=== PATIENT | female | born 1945 | race Caucasian/White ===

== ENCOUNTER 2016-10-21 02:58 | Emergency (ER) | payer OTHER ==
[~2016-10-21] VITALS: Ht 157.5 cm; Wt 99.8 kg
[~2016-10-21 02:58] MED LIST: ACET-1156 PO; ALB5IS NEB; ALPR0.25 PO; ASPI81CH43 PO; CLOP75TA41 PO; FLUO-125 PO; FURO20TA3 PO; GABA-339 PO; HYDR-1421 PO; IPR002IS NEB; Isosorbide Mononitrate PO; LEVEMIR SC; MAGN400T7 PO; METF-314 PO; METO-169 PO; NITR0.2D12 TD; OMEP20TA PO; POTA20IN2 PO; PRED-559 PO; SIMV-8 PO; TELM80TA PO
[2016-10-21 03:28] LABS: Basophils # (auto) 0 uL; Basophils % (auto) 0.3 % (0.0-2.0); Eosinophils # (auto) 0.5 uL; Eosinophils % (auto) 4.3 % (0.0-7.0); Hematocrit 32.4 % (36.0-46.0); Hemoglobin 10.7 g/dL (12.2-16.2); Lymphocytes # (auto) 3.7 uL; Lymphocytes % (auto) 34.6 % (10.0-50.0); Mean Corpuscular Hemoglobin 27.7 pg (28.0-32.0); Mean Corpuscular Hgb Conc. 33.1 g/dL (32.0-36.0); Mean Corpuscular Volume 83.6 fL (80.0-100.0); Monocytes # (auto) 0.7 uL; Monocytes % (auto) 6.1 % (0.0-12.0); Neutrophils # (auto) 5.9 uL; Neutrophils % (auto) 54.7 % (37.0-80.0); Platelet Count (auto) 369 10^3/uL (140-450); Red Cell Distribution Width 14.5 % (11.6-16.0); White Blood Cell 10.7 10^3/uL (4.4-10.8)
[2016-10-21] MEDS ORDERED: MORPHINE SULFATE 4 MG/ML SYRG IV ONE (03:45)
[2016-10-21] MEDS ORDERED: ONDANSETRON HCL 4 MG/2 ML VIAL IV ONE (03:45)
[2016-10-21 03:47] LABS: Albumin 3.7 g/dL (3.4-5.0); BUN/Creatinine Ratio 24.6; Calcium 8.3 mg/dL (8.5-10.1); Potassium 4.3 mmol/L (3.5-5.1)
[2016-10-21 03:50] LABS: Bilirubin, Total 0.3 mg/dL (0.2-1.0); Total Protein 7.1 g/dL (6.4-8.2)
[2016-10-21 03:52] LABS: INR 0.94 (0.9-1.15); Partial Thromboplastin Time 26.4 sec (22.64-33.71); Prothrombin Time 10.2 sec (9.37-12.3)
[2016-10-21 06:31] VITALS: BP 107/67
== END 2016-10-21 06:16 | disposition home or self-care (01) ==
LOC: ER 02:58
DX: S66.912A Strain of unspecified muscle, fascia and tendon at wrist and hand level, left hand, initial encounter (principal); S16.1XXA Strain of muscle, fascia and tendon at neck level, initial encounter; S39.012A Strain of muscle, fascia and tendon of lower back, initial encounter; S09.90XA Unspecified injury of head, initial encounter; I11.0 Hypertensive heart disease with heart failure; I50.9 Heart failure, unspecified; J44.9 Chronic obstructive pulmonary disease, unspecified; E11.9 Type 2 diabetes mellitus without complications; E78.5 Hyperlipidemia, unspecified; M19.90 Unspecified osteoarthritis, unspecified site; Z95.1 Presence of aortocoronary bypass graft; Z88.1 Allergy status to other antibiotic agents; Z87.891 Personal history of nicotine dependence; Z90.89 Acquired absence of other organs; W10.9XXA Fall (on) (from) unspecified stairs and steps, initial encounter; Y93.89 Activity, other specified; Y99.8 Other external cause status; Y92.89 Other specified places as the place of occurrence of the external cause
CPT/HCPCS: 36415; 70450; 72125; 72128; 72131; 73100; 80053; 85025; 85610; 85730; 96374; 96375; 99285; J2270; J2405

== ENCOUNTER 2017-11-11 00:51 | Inpatient (IN) | payer OTHER ==
[~2017-11-11] VITALS: Ht 160 cm; Wt 104.9 kg
[~2017-11-11 00:51] MED LIST changes: +DOXY1CAP82 PO; -METF-314 PO; +METF-371 PO
[2017-11-11 02:11] LABS: Basophils # (auto) 0.1 uL; Eosinophils # (auto) 0.4 uL; Eosinophils % (auto) 4.5 % (0.0-7.0); Lymphocytes # (auto) 2.1 uL; Lymphocytes % (auto) 25.6 % (10.0-50.0); Mean Corpuscular Hemoglobin 28.3 pg (28.0-32.0); Mean Corpuscular Hgb Conc. 33.3 g/dL (32.0-36.0); Mean Corpuscular Volume 84.8 fL (80.0-100.0); Monocytes # (auto) 0.3 uL; Monocytes % (auto) 4.2 % (0.0-12.0); Neutrophils # (auto) 5.4 uL; Neutrophils % (auto) 64.7 % (37.0-80.0); Nucleated Red Blood Cells % 0.2 %; Platelet Count (auto) 255 10^3/uL (140-450); Red Blood Cells 3.54 10^6/uL (4.0-5.20); Red Cell Distribution Width 14.9 % (11.8-14.3); White Blood Cell 8.4 10^3/uL (4.4-10.8)
[2017-11-11 02:21] LABS: INR 0.91 (0.9-1.15); Prothrombin Time 9.8 sec (9.27-12.13)
[2017-11-11 02:41] LABS: BUN/Creatinine Ratio 13.2; Calcium 7.8 mg/dL (8.5-10.1); Magnesium 1.9 mg/dL (1.6-2.6); Potassium 3.6 mmol/L (3.5-5.1)
[2017-11-11 02:46] LABS: Bilirubin, Total 0.3 mg/dL (0.2-1.0); Total Protein 6.5 g/dL (6.4-8.2)
[2017-11-11 02:54] LABS: Partial Thromboplastin Time 19.6 sec (23.78-33.04)
[2017-11-11] MEDS ORDERED: ONDANSETRON HCL 4 MG/2 ML VIAL IV ONE (04:15)
[2017-11-11] MEDS ORDERED: NALBUPHINE HCL 10 MG/1ml INJECTION IV ONE (04:15)
[2017-11-11] MEDS ORDERED: HYDROmorphone HCL 2 MG/ML VL IV PRN (08:15)
[2017-11-11] MEDS ORDERED: LACTULOSE 20Gm/30ML SOLN PO PRN (08:15)
[2017-11-11] MEDS ORDERED: DEXTROSE (50%) 50ML SYRG IV PRN (08:15)
[2017-11-11] MEDS ORDERED: ACETAMINOPHEN 500 MG TAB PO PRN (08:15)
[2017-11-11] MEDS ORDERED: NITROGLYCERIN 0.4 MG SL TAB SL PRN (08:15)
[2017-11-11] MEDS ORDERED: LORazepam 0.5 MG TAB PO PRN (08:15)
[2017-11-11] MEDS ORDERED: PROMETHAZINE HCL 25 MG/ML 1ML IV PRN (08:15)
[2017-11-11] MEDS ORDERED: TEMAZEPAM 15 MG CAP PO PRN (08:15)
[2017-11-11] MEDS ORDERED: IOHEXOL 350 MG/ML 100ML IJ ONE (08:41)
[2017-11-11] MEDS: cefTRIAXone 1GM/10ml IVPUSH 10 ML IV SCH (09:09)
[2017-11-11] MEDS: AZITHROMYCIN 500MG/ 250ML 250 ML IV SCH (09:39)
[2017-11-11] MEDS: ASPirin 81 mg TAB PO SCH (09:39)
[2017-11-11] MEDS: NITROGLYCERIN 0.2MG/HR TOPICAL PATCH TD SCH (09:39)
[2017-11-11 09:49] VITALS: BP 122/67
[2017-11-11] MEDS ORDERED: ENOXAPARIN SOD 40 MG/0.4 ML SYRINGE SC SCH ×2 (10:00)
[2017-11-11] MEDS ORDERED: ENALAPRIL MALEATE 2.5 MG TAB PO SCH (10:00)
[2017-11-11] MEDS ORDERED: POTASSIUM CHL 20 Meq TABLET PO SCH (10:00)
[2017-11-11] MEDS ORDERED: CARVEDILOL 3.125 MG TAB PO SCH (10:00)
[2017-11-11] MEDS ORDERED: FUROSEMIDE 40 MG/4 ML VIAL IV SCH (10:00)
[2017-11-11 10:03] LABS: Urine Bacteria NONE SEEN /hpf (None Seen); Urine Blood Negative /uL (Negative); Urine Budding Yeast MANY /hpf (None Seen); Urine Specific Gravity 1.021 (1.001-1.035); Urine WBC 248 /hpf (0 - 5)
[2017-11-11 10:13] LABS: Amphetamine Screen, Urine NEGATIVE (NEGATIVE); Barbiturate Scree,Urine NEGATIVE (NEGATIVE); Benzodiazephine Screen, Urine NEGATIVE (NEGATIVE); Cannabinoid Screen, Urine NEGATIVE (NEGATIVE); Cocaine Screen, Urine NEGATIVE (NEGATIVE); Opiate Scree,Urine POSITIVE (NEGATIVE); Phencyclidine Screen, Urine NEGATIVE (NEGATIVE)
[2017-11-11] MEDS: HYDROcodone-ACET 5/325MG TAB PO PRN ×2 (10:47→17:11)
[2017-11-11] MEDS: IPRATROPIUM BROM 0.5 MG/2.5ML INH SOL NEB SCH ×2 (11:02→18:51)
[2017-11-11] MEDS: ALBUTEROL SULF 2.5 MG/0.5ML(0.5%) NEB SOLN NEB SCH ×2 (11:02→18:51)
[2017-11-11] MEDS ORDERED: ENOXAPARIN SOD 60 MG/0.6 ML SYRINGE SC ONE (11:30)
[2017-11-11] MEDS: METOPROLOL SUCCINATE XL 50 MG TAB PO SCH (12:02)
[2017-11-11] MEDS: LOSARTAN POTASSIUM 50 MG TAB PO SCH (12:06)
[2017-11-11] MEDS: PANTOPRAZOLE 40 MG TAB PO SCH (12:07)
[2017-11-11] MEDS: CLOPIDOGREL BISULFATE 75 MG TAB PO SCH (12:07)
[2017-11-11] MEDS: MAGNESIUM OXIDE 400 MG TAB PO SCH (12:07)
[2017-11-11] MEDS: ACCU-CHEK COMFORT CURVE STRIP VI SCH ×3 (12:07→22:05)
[2017-11-11] MEDS: ALPRAZolam 0.25 MG TAB PO SCH ×2 (12:07→22:06)
[2017-11-11] MEDS: FLUoxetine HCL 20 MG CAP PO SCH (12:07)
[2017-11-11] MEDS: GABAPENTIN 300 MG CAP PO SCH ×2 (12:07→22:06)
[2017-11-11] MEDS: INSULIN LANTUS (GLARGINE) 1 /0.01ml (100units/ml) SC SCH (12:08)
[2017-11-11] MEDS: InsuLIN REG 1unit/0.01ml Soln (100units/ml) SC SCH ×3 (12:08→22:27)
[2017-11-11] MEDS ORDERED: SODIUM CHLOR 0.9% PF (SALINE LOCK) 10ML VIAL/SYR IV SCH (14:00)
[2017-11-11] MEDS: SODIUM CHLOR 0.9% PF (SALINE LOCK) 10ML VIAL/SYR IV SCH ×2 (14:14→22:05)
[2017-11-11] MEDS: ALBUTEROL SULF 2.5 MG/0.5ML(0.5%) NEB SOLN NEB PRN ×2 (14:47→22:23)
[2017-11-11] MEDS: FUROSEMIDE 40 MG/4 ML VIAL IV SCH (17:35)
[2017-11-11 18:00] VITALS: BP 103/54
[2017-11-11 22:00] VITALS: BP 116/61
[2017-11-11] MEDS ORDERED: PATIENTS OWN MEDICATION (Gabapentin 600 MG) PO SCH (22:00)
[2017-11-11] MEDS ORDERED: ISOSORBIDE MONONITRATE 30 MG PO SCH (22:00)
[2017-11-11] MEDS: ENOXAPARIN SOD 100 MG/1 ML SYRINGE SC SCH (22:05)
[2017-11-11] MEDS: POTASSIUM CHL 20 Meq TABLET PO SCH (22:05)
[2017-11-11] MEDS: ATORVASTATIN 20 MG TAB PO SCH (22:06)
[2017-11-12] MEDS: IPRATROPIUM BROM 0.5 MG/2.5ML INH SOL NEB SCH ×4 (00:57→18:10)
[2017-11-12] MEDS: ALBUTEROL SULF 2.5 MG/0.5ML(0.5%) NEB SOLN NEB SCH ×4 (00:57→18:10)
[2017-11-12] MEDS: HYDROcodone-ACET 5/325MG TAB PO PRN ×3 (03:42→18:05)
[2017-11-12 06:30] VITALS: BP 107/43
[2017-11-12] MEDS: FUROSEMIDE 40 MG/4 ML VIAL IV SCH ×2 (06:41→17:26)
[2017-11-12] MEDS: SODIUM CHLOR 0.9% PF (SALINE LOCK) 10ML VIAL/SYR IV SCH ×3 (06:41→21:43)
[2017-11-12] MEDS: INSULIN LANTUS (GLARGINE) 1 /0.01ml (100units/ml) SC SCH (06:42)
[2017-11-12] MEDS: InsuLIN REG 1unit/0.01ml Soln (100units/ml) SC SCH ×4 (06:42→22:04)
[2017-11-12] MEDS: ACCU-CHEK COMFORT CURVE STRIP VI SCH ×4 (06:42→21:42)
[2017-11-12] MEDS ORDERED: INSULIN DETEMIR 16 UNIT SC SCH (07:00)
[2017-11-12 08:06] LABS: Basophils # (auto) 0 uL; Basophils % (auto) 0.6 % (0.0-2.0); Eosinophils # (auto) 0.3 uL; Eosinophils % (auto) 3.9 % (0.0-7.0); Hematocrit 30.7 % (36.0-46.0); Hemoglobin 10.2 g/dL (12.2-16.2); Lymphocytes % (auto) 26.9 % (10.0-50.0); Mean Corpuscular Hgb Conc. 33.1 g/dL (32.0-36.0); Mean Corpuscular Volume 84.6 fL (80.0-100.0); Monocytes # (auto) 0.3 uL; Monocytes % (auto) 4.1 % (0.0-12.0); Neutrophils # (auto) 4.9 uL; Neutrophils % (auto) 64.5 % (37.0-80.0); Nucleated Red Blood Cells % 0.1 %; Platelet Count (auto) 285 10^3/uL (140-450); Red Blood Cells 3.63 10^6/uL (4.0-5.20); Red Cell Distribution Width 15.1 % (11.8-14.3); White Blood Cell 7.6 10^3/uL (4.4-10.8)
[2017-11-12 08:44] LABS: Albumin 3.2 g/dL (3.4-5.0); BUN/Creatinine Ratio 15.1; Bilirubin, Total 0.3 mg/dL (0.2-1.0); Calcium 8.6 mg/dL (8.5-10.1); Potassium 4.1 mmol/L (3.5-5.1); Total Protein 6.8 g/dL (6.4-8.2)
[2017-11-12 09:00] VITALS: BP 126/66
[2017-11-12] MEDS ORDERED: IOHEXOL 350 MG/ML 100ML IJ ONE (09:30)
[2017-11-12] MEDS: cefTRIAXone 1GM/10ml IVPUSH 10 ML IV SCH (09:44)
[2017-11-12] MEDS ORDERED: TELMISARTAN 80 MG PO SCH (10:00)
[2017-11-12] MEDS ORDERED: PATIENTS OWN MEDICATION (Omeprazole (Gnp Omeprazole) 40 MG) PO SCH (10:00)
[2017-11-12] MEDS: AZITHROMYCIN 500MG/ 250ML 250 ML IV SCH (11:27)
[2017-11-12] MEDS: ASPirin 81 mg TAB PO SCH (11:27)
[2017-11-12] MEDS: MAGNESIUM OXIDE 400 MG TAB PO SCH (11:28)
[2017-11-12] MEDS: POTASSIUM CHL 20 Meq TABLET PO SCH ×2 (11:28→21:43)
[2017-11-12] MEDS: GABAPENTIN 300 MG CAP PO SCH ×2 (11:28→21:41)
[2017-11-12] MEDS: LOSARTAN POTASSIUM 50 MG TAB PO SCH (11:28)
[2017-11-12] MEDS: CLOPIDOGREL BISULFATE 75 MG TAB PO SCH (11:28)
[2017-11-12] MEDS: FLUoxetine HCL 20 MG CAP PO SCH (11:29)
[2017-11-12] MEDS: METOPROLOL SUCCINATE XL 50 MG TAB PO SCH (11:29)
[2017-11-12] MEDS: PANTOPRAZOLE 40 MG TAB PO SCH (11:29)
[2017-11-12] MEDS: ALPRAZolam 0.25 MG TAB PO SCH ×2 (11:29→21:41)
[2017-11-12] MEDS: NITROGLYCERIN 0.2MG/HR TOPICAL PATCH TD SCH (11:30)
[2017-11-12] MEDS: ENOXAPARIN SOD 100 MG/1 ML SYRINGE SC SCH (11:30)
[2017-11-12 13:00] VITALS: BP 88/47
[2017-11-12] MEDS: methylPREDNISolone SOD SUCC 40 MG/ML VL IV SCH ×2 (13:49→21:41)
[2017-11-12 17:00] VITALS: BP_SYST 107; BP_SYST 145; BP_DIAS 57; BP_DIAS 79
[2017-11-12] MEDS: ACETYLCYSTEINE 10 %(100MG/ML) SOL 4ML NEB SCH (18:11)
[2017-11-12] MEDS: ATORVASTATIN 20 MG TAB PO SCH (21:41)
[2017-11-12] MEDS: RANOLAZINE ER 500 MG TAB PO SCH (21:45)
[2017-11-12 22:00] VITALS: BP 115/70
[2017-11-12] MEDS ORDERED: RANEXA PO SCH (22:00)
[2017-11-13] MEDS: ALBUTEROL SULF 2.5 MG/0.5ML(0.5%) NEB SOLN NEB SCH ×5 (00:08→22:13)
[2017-11-13] MEDS: IPRATROPIUM BROM 0.5 MG/2.5ML INH SOL NEB SCH ×5 (00:08→22:13)
[2017-11-13] MEDS: ACETYLCYSTEINE 10 %(100MG/ML) SOL 4ML NEB SCH ×5 (00:08→22:13)
[2017-11-13] MEDS: HYDROcodone-ACET 5/325MG TAB PO PRN ×3 (04:02→18:26)
[2017-11-13 05:17] VITALS: BP 112/73
[2017-11-13] MEDS: ACCU-CHEK COMFORT CURVE STRIP VI SCH ×4 (06:17→23:37)
[2017-11-13] MEDS: methylPREDNISolone SOD SUCC 40 MG/ML VL IV SCH ×3 (06:17→23:20)
[2017-11-13] MEDS: FUROSEMIDE 40 MG/4 ML VIAL IV SCH (06:17)
[2017-11-13] MEDS: SODIUM CHLOR 0.9% PF (SALINE LOCK) 10ML VIAL/SYR IV SCH ×3 (06:18→23:20)
[2017-11-13] MEDS: InsuLIN REG 1unit/0.01ml Soln (100units/ml) SC SCH (07:01)
[2017-11-13] MEDS: INSULIN LANTUS (GLARGINE) 1 /0.01ml (100units/ml) SC SCH ×2 (07:01→23:54)
[2017-11-13 08:23] VITALS: BP 134/72
[2017-11-13 09:00] VITALS: BP 127/74
[2017-11-13 10:01] LABS: Albumin 3.2 g/dL (3.4-5.0); BUN/Creatinine Ratio 13.9; Bilirubin, Total 0.3 mg/dL (0.2-1.0); Calcium 8.7 mg/dL (8.5-10.1); Potassium 5.4 mmol/L (3.5-5.1)
[2017-11-13] MEDS: ASPirin 81 mg TAB PO SCH (10:05)
[2017-11-13] MEDS: POTASSIUM CHL 20 Meq TABLET PO SCH (10:05)
[2017-11-13] MEDS: AZITHROMYCIN 500MG/ 250ML 250 ML IV SCH (10:05)
[2017-11-13] MEDS: MAGNESIUM OXIDE 400 MG TAB PO SCH (10:05)
[2017-11-13] MEDS: cefTRIAXone 1GM/10ml IVPUSH 10 ML IV SCH (10:05)
[2017-11-13] MEDS: LOSARTAN POTASSIUM 50 MG TAB PO SCH (10:05)
[2017-11-13] MEDS: FLUoxetine HCL 20 MG CAP PO SCH (10:06)
[2017-11-13] MEDS: CLOPIDOGREL BISULFATE 75 MG TAB PO SCH (10:06)
[2017-11-13] MEDS: PANTOPRAZOLE 40 MG TAB PO SCH (10:06)
[2017-11-13] MEDS: METOPROLOL SUCCINATE XL 50 MG TAB PO SCH (10:06)
[2017-11-13] MEDS: GABAPENTIN 300 MG CAP PO SCH ×2 (10:06→23:22)
[2017-11-13] MEDS: ALPRAZolam 0.25 MG TAB PO SCH ×2 (10:07→23:23)
[2017-11-13] MEDS: NITROGLYCERIN 0.2MG/HR TOPICAL PATCH TD SCH (10:07)
[2017-11-13] MEDS: RANOLAZINE ER 500 MG TAB PO SCH ×2 (10:19→23:23)
[2017-11-13] MEDS ORDERED: SODIUM POLYSTYRENE SULF 15GM/60ML SUSP PO ONE (10:30)
[2017-11-13 13:00] VITALS: BP 120/66
[2017-11-13 17:00] VITALS: BP 127/72
[2017-11-13] MEDS ORDERED: ACCU-CHEK COMFORT CURVE STRIP VI SCH (17:00)
[2017-11-13] MEDS ORDERED: InsuLIN REG 1unit/0.01ml Soln (100units/ml) SC SCH ×4 (17:00→22:00)
[2017-11-13 17:53] LABS: Calcium 8.1 mg/dL (8.5-10.1); Potassium 4.6 mmol/L (3.5-5.1)
[2017-11-13 17:58] LABS: BUN/Creatinine Ratio 15.7; Bilirubin, Total 0.3 mg/dL (0.2-1.0); Total Protein 6.9 g/dL (6.4-8.2)
[2017-11-13 22:00] VITALS: BP 117/48
[2017-11-13] MEDS: ATORVASTATIN 20 MG TAB PO SCH (23:22)
[2017-11-14] VITALS (7 sets, daily range): BP systolic 117–130; BP diastolic 58–74
[2017-11-14] MEDS ORDERED: DEXTROSE (50%) 50ML SYRG IV PRN (01:30)
[2017-11-14] MEDS: IPRATROPIUM BROM 0.5 MG/2.5ML INH SOL NEB SCH ×6 (02:16→22:10)
[2017-11-14] MEDS: ALBUTEROL SULF 2.5 MG/0.5ML(0.5%) NEB SOLN NEB SCH ×6 (02:16→22:10)
[2017-11-14] MEDS: ACETYLCYSTEINE 10 %(100MG/ML) SOL 4ML NEB SCH ×6 (02:16→22:10)
[2017-11-14] MEDS ORDERED: InsuLIN REG 1unit/0.01ml Soln (100units/ml) SC SCH ×2 (04:00→22:00)
[2017-11-14] MEDS: SODIUM CHLOR 0.9% PF (SALINE LOCK) 10ML VIAL/SYR IV SCH ×3 (06:55→22:53)
[2017-11-14] MEDS: methylPREDNISolone SOD SUCC 40 MG/ML VL IV SCH ×3 (06:56→22:53)
[2017-11-14] MEDS: INSULIN LANTUS (GLARGINE) 1 /0.01ml (100units/ml) SC SCH ×2 (06:57→22:32)
[2017-11-14] MEDS: HYDROcodone-ACET 5/325MG TAB PO PRN ×2 (08:10→18:29)
[2017-11-14 08:40] LABS: BUN/Creatinine Ratio 19.4; Bilirubin, Total 0.2 mg/dL (0.2-1.0); Calcium 8.5 mg/dL (8.5-10.1); Potassium 4.1 mmol/L (3.5-5.1); Total Protein 6.5 g/dL (6.4-8.2)
[2017-11-14] MEDS: AZITHROMYCIN 500MG/ 250ML 250 ML IV SCH (09:13)
[2017-11-14] MEDS: ACCU-CHEK COMFORT CURVE STRIP VI SCH ×4 (09:13→22:25)
[2017-11-14] MEDS: InsuLIN REG 1unit/0.01ml Soln (100units/ml) SC SCH ×3 (09:13→18:28)
[2017-11-14] MEDS: cefTRIAXone 1GM/10ml IVPUSH 10 ML IV SCH (09:13)
[2017-11-14] MEDS: RANOLAZINE ER 500 MG TAB PO SCH ×2 (09:14→23:09)
[2017-11-14] MEDS: GABAPENTIN 300 MG CAP PO SCH ×2 (09:14→23:04)
[2017-11-14] MEDS: PANTOPRAZOLE 40 MG TAB PO SCH (09:14)
[2017-11-14] MEDS: FLUoxetine HCL 20 MG CAP PO SCH (09:14)
[2017-11-14] MEDS: CLOPIDOGREL BISULFATE 75 MG TAB PO SCH (09:14)
[2017-11-14] MEDS: ASPirin 81 mg TAB PO SCH (09:14)
[2017-11-14] MEDS: MAGNESIUM OXIDE 400 MG TAB PO SCH (09:14)
[2017-11-14] MEDS: ALPRAZolam 0.25 MG TAB PO SCH ×2 (09:15→23:03)
[2017-11-14] MEDS: METOPROLOL SUCCINATE XL 50 MG TAB PO SCH (09:15)
[2017-11-14] MEDS: NITROGLYCERIN 0.2MG/HR TOPICAL PATCH TD SCH (09:15)
[2017-11-14] MEDS: MORPHINE SULF(PF) 0.5MG/ML 10ML VIAL IV PRN (22:58)
[2017-11-14] MEDS: ATORVASTATIN 20 MG TAB PO SCH (23:04)
[2017-11-15] MEDS: IPRATROPIUM BROM 0.5 MG/2.5ML INH SOL NEB SCH ×5 (01:53→18:09)
[2017-11-15] MEDS: ACETYLCYSTEINE 10 %(100MG/ML) SOL 4ML NEB SCH ×5 (01:54→18:09)
[2017-11-15] MEDS: ALBUTEROL SULF 2.5 MG/0.5ML(0.5%) NEB SOLN NEB SCH ×5 (01:54→18:09)
[2017-11-15 05:34] VITALS: BP 132/54
[2017-11-15] MEDS: SODIUM CHLOR 0.9% PF (SALINE LOCK) 10ML VIAL/SYR IV SCH ×2 (06:26→14:56)
[2017-11-15] MEDS: methylPREDNISolone SOD SUCC 40 MG/ML VL IV SCH (06:26)
[2017-11-15] MEDS: INSULIN LANTUS (GLARGINE) 1 /0.01ml (100units/ml) SC SCH (06:31)
[2017-11-15] MEDS: MORPHINE SULF(PF) 0.5MG/ML 10ML VIAL IV PRN (06:44)
[2017-11-15] MEDS: ACCU-CHEK COMFORT CURVE STRIP VI SCH ×3 (06:46→17:00)
[2017-11-15] MEDS: InsuLIN REG 1unit/0.01ml Soln (100units/ml) SC SCH ×3 (06:46→17:00)
[2017-11-15 08:00] VITALS: BP 136/66
[2017-11-15] MEDS: cefTRIAXone 1GM/10ml IVPUSH 10 ML IV SCH (10:23)
[2017-11-15] MEDS: GABAPENTIN 300 MG CAP PO SCH (10:24)
[2017-11-15] MEDS: RANOLAZINE ER 500 MG TAB PO SCH (10:24)
[2017-11-15] MEDS: PANTOPRAZOLE 40 MG TAB PO SCH (10:24)
[2017-11-15] MEDS: CLOPIDOGREL BISULFATE 75 MG TAB PO SCH (10:24)
[2017-11-15] MEDS: MAGNESIUM OXIDE 400 MG TAB PO SCH (10:24)
[2017-11-15] MEDS: ASPirin 81 mg TAB PO SCH (10:24)
[2017-11-15] MEDS: AZITHROMYCIN 500MG/ 250ML 250 ML IV SCH (10:24)
[2017-11-15] MEDS: ALPRAZolam 0.25 MG TAB PO SCH (10:25)
[2017-11-15] MEDS: METOPROLOL SUCCINATE XL 50 MG TAB PO SCH (10:25)
[2017-11-15] MEDS: NITROGLYCERIN 0.2MG/HR TOPICAL PATCH TD SCH (10:26)
[2017-11-15] MEDS: FLUoxetine HCL 20 MG CAP PO SCH (10:26)
[2017-11-15 12:00] VITALS: BP 132/65
[2017-11-15 14:11] VITALS: BP 132/65
[2017-11-15 17:00] VITALS: BP 109/47
== END 2017-11-15 18:50 | disposition home or self-care (01) | DRG 637 ==
LOC: ER 00:51 → EDBD 00:51 → TELE 00:52 → TELE-CENTR 16:24
PROVIDERS: ADMIT Internal Medicine; ATTEND Internal Medicine
PROC: 5A09357 Assistance with Respiratory Ventilation, Less than 24 Consecutive Hours, Continuous Positive Airway Pressure (ICD-10-PCS; principal; 2017-11-13)
PROC: 5A09357 Assistance with Respiratory Ventilation, Less than 24 Consecutive Hours, Continuous Positive Airway Pressure (ICD-10-PCS; 2017-11-15)
DX: E11.65 Type 2 diabetes mellitus with hyperglycemia (principal); J96.20 Acute and chronic respiratory failure, unspecified whether with hypoxia or hypercapnia; J44.1 Chronic obstructive pulmonary disease with (acute) exacerbation; I25.110 Atherosclerotic heart disease of native coronary artery with unstable angina pectoris; J44.0 Chronic obstructive pulmonary disease with (acute) lower respiratory infection; E66.2 Morbid (severe) obesity with alveolar hypoventilation; Z68.41 Body mass index [BMI] 40.0-44.9, adult; I11.0 Hypertensive heart disease with heart failure; E87.5 Hyperkalemia; E78.5 Hyperlipidemia, unspecified; F32.9 Major depressive disorder, single episode, unspecified; F41.9 Anxiety disorder, unspecified; F51.04 Psychophysiologic insomnia; G89.29 Other chronic pain; I25.2 Old myocardial infarction; I25.82 Chronic total occlusion of coronary artery; J20.9 Acute bronchitis, unspecified; T38.0X5A Adverse effect of glucocorticoids and synthetic analogues, initial encounter; Z68.29 Body mass index [BMI] 29.0-29.9, adult; Y92.89 Other specified places as the place of occurrence of the external cause; Z79.4 Long term (current) use of insulin; Z81.8 Family history of other mental and behavioral disorders; Z82.49 Family history of ischemic heart disease and other diseases of the circulatory system; Z82.62 Family history of osteoporosis; Z83.3 Family history of diabetes mellitus; Z87.442 Personal history of urinary calculi; Z87.891 Personal history of nicotine dependence; Z95.1 Presence of aortocoronary bypass graft; Z99.81 Dependence on supplemental oxygen; M19.90 Unspecified osteoarthritis, unspecified site; M54.5 Low back pain; Z88.1 Allergy status to other antibiotic agents; Z79.899 Other long term (current) drug therapy; I50.9 Heart failure, unspecified
CPT/HCPCS: 36415; 71045; 71275; 80053; 80061; 80307; 81001; 82550; 82962; 83036; 83735; 83880; 84443; 84484; 85025; 85379; 85610; 85652; 85730; 86141; 93005; 93971; 94640; 94660; 96365; 96372; 96375; 97110; 97116; 97163; 97530; J1815; J2405

== ENCOUNTER 2018-11-07 13:52 | Emergency (ER) | payer OTHER ==
[~2018-11-07] VITALS: Ht 160 cm; Wt 99.8 kg
[~2018-11-07 13:52] MED LIST changes: +DOXY-338 PO; -DOXY1CAP82 PO
[2018-11-07 16:05] LABS: Urine Bacteria FEW /hpf (None Seen); Urine Blood Negative /uL (Negative); Urine Specific Gravity 1.014 (1.001-1.035); Urine WBC 50 /hpf (0 - 5)
[2018-11-07 16:27] VITALS: BP 126/60
== END 2018-11-07 16:59 | disposition home or self-care (01) ==
LOC: EDBD 13:52 → ER 14:03
DX: R51 Headache (principal); M54.2 Cervicalgia; M25.512 Pain in left shoulder; G89.11 Acute pain due to trauma; I11.0 Hypertensive heart disease with heart failure; I50.9 Heart failure, unspecified; F41.9 Anxiety disorder, unspecified; M19.90 Unspecified osteoarthritis, unspecified site; J44.9 Chronic obstructive pulmonary disease, unspecified; I25.810 Atherosclerosis of coronary artery bypass graft(s) without angina pectoris; I25.2 Old myocardial infarction; E11.9 Type 2 diabetes mellitus without complications; E78.5 Hyperlipidemia, unspecified; Z86.2 Personal history of diseases of the blood and blood-forming organs and certain disorders involving the immune mechanism; Z87.442 Personal history of urinary calculi; Z87.891 Personal history of nicotine dependence; Z79.2 Long term (current) use of antibiotics; Z79.82 Long term (current) use of aspirin; Z79.4 Long term (current) use of insulin; Z88.1 Allergy status to other antibiotic agents; W18.39XA Other fall on same level, initial encounter; Y93.89 Activity, other specified; Y92.89 Other specified places as the place of occurrence of the external cause; Y99.8 Other external cause status
CPT/HCPCS: 70450; 71045; 72125; 73030; 74176; 81001